=== PATIENT | male | born 1990 | race Hispanic/Latino ===

== ENCOUNTER 2017-07-23 01:19 | Emergency (ER) | payer SELFPAY ==
--- NOTE | 2017-07-23 02:38 | ED PDOC ---
HPI: Psych/Substance Abuse Time Seen by Provider: 07/23/17 01:45 Chief Complaint (Nursing): Alcohol Ingestion History Per: Patient Additional Complaint(s): Pt. states he was found by director of women's services sitting in his car. Admits to drinking alcohol tonight. Offers no complaints at this time. Past Medical History Reviewed: Historical Data, Nursing Documentation, Vital Signs Vital Signs: Last Vital Signs Temp 97.6 F 07/23/17 01:20 Pulse 124 H 07/23/17 01:20 Resp 16 07/23/17 01:20 BP 153/77 H 07/23/17 01:20 Pulse Ox 96 07/23/17 01:20 - Family History Family History: States: No Known Family Hx - Allergies Allergies/Adverse Reactions: Allergies Allergy/AdvReac Type Severity Reaction Status Date / Time No Known Allergies Allergy Verified 07/23/17 01:25 Review of Systems ROS Statement: Except As Marked, All Systems Reviewed And Found Negative Physical Exam - Physical Exam Appears: Positive for: Well, Non-toxic, No Acute Distress Head Exam: Positive for: ATRAUMATIC, NORMAL INSPECTION, NORMOCEPHALIC Skin: Positive for: Normal Color, Warm. Negative for: Rash Eye Exam: Positive for: Normal appearance. Negative for: Periorbital swelling, Periorbital tenderness ENT: Positive for: TM Is/Are (no hemotympanum b/l) Neck: Positive for: Normal, Painless ROM Cardiovascular/Chest: Positive for: Regular Rate, Rhythm, Chest Non Tender Respiratory: Positive for: CNT, Normal Breath Sounds Gastrointestinal/Abdominal: Positive for: Normal Exam, Soft. Negative for: Tenderness Back: Positive for: Normal Inspection. Negative for: L CVA Tenderness, R CVA Tenderness, Vertebral Tenderness Extremity: Positive for: Normal ROM Neurologic/Psych: Positive for: Alert, Oriented, Gait (steady, unassisted). Negative for: Aphasia, Facial Droop - ECG O2 Sat by Pulse Oximetry: 96 - Progress ED Course And Treament: HR on nurse monitoring: [address]-T wave changes, POX: 98% on RA Disposition - Clinical Impression Clinical Impression: Alcohol intoxication - Patient ED Disposition Is Patient to be Admitted: No - Disposition Disposition: Routine/Home Disposition Time: 02:37 Condition: STABLE Instructions: Alcohol Use - When Is Drinking a Problem? Forms: Direct Access Software ([place])
[2017-07-23 03:06] VITALS: BP 122/78; PULSE 102; RESP 18; TEMP 98.9
[2017-07-23 04:42] VITALS: O2SAT 96
== END 2017-07-23 03:07 | disposition home or self-care (01) ==
LOC: H.ER 01:19
DX: F10.129 Alcohol abuse with intoxication, unspecified (principal)